=== PATIENT | female | born 1985 | race Caucasian/White ===

== ENCOUNTER 2024-11-10 08:15 | Inpatient (IN) | payer MEDICAID ==
[2024-11-10] MEDS ORDERED: Sodium Chloride 0.9% 10 ML Syringe FLUSH PRN (08:34)
[2024-11-10] MEDS: Sodium Chloride 0.9% 1,000 ML IV ONE ×2 (08:42)
[2024-11-10] MEDS: Ondansetron 4 MG/2 ML SDV IVPUSH ONE ×2 (08:42→13:59)
[2024-11-10 08:46] LABS: BASE EXCESS VENOUS -26.4 (-2.0-3.0); HEMATOCRIT 53.3 % (37.0-47.0); HEMOGLOBIN 16.5 g/dL (12.0-16.0); MEAN CORPUSCULAR HEMOGLOBIN 30.3 pg (28.0-32.0); MEAN PLATELET VOLUME 11.9 fL (9.4-12.3); PH,VENOUS 6.94 (7.32-7.43); PLATELET COUNT,PLT 459 K/uL (150-400); RED BLOOD CELL COUNT 5.44 M/uL (4.10-5.30)
[2024-11-10 08:51] LABS: WHITE BLOOD CELL COUNT,WBC 36.31 K/uL (3.9-11.3)
[2024-11-10] MEDS: Cefepime 2 GM in Sodium Chloride 0.9% 50 ML IV ONE (09:09)
[2024-11-10 09:11] LABS: A/G RATIO 0.7 (0.9-1.6); ALANINE AMINOTRANSFERASE,ALT 170 IU/L (14-63); ALBUMIN 3.5 g/dL (3.4-5.0); ALKALINE PHOSPHATASE 145 U/L (46-116); ASPARTATE AMNIOTRANSFERASE,AST 99 IU/L (15-37); BILIRUBIN TOTAL 1.5 mg/dL (0.2-1.0); BLOOD UREA NITROGEN,BUN 32 mg/dL (7.0-18.0); CALCIUM 9.1 mg/dL (8.5-10.1); CARBON DIOXIDE,CO2 6.2 mmol/L (21.0-32.0); CHLORIDE,CL 85 mmol/L (98-107); CREATINE KINASE,CK 96 U/L (26-308); CREATININE 2.8 mg/dL (0.6-1.0); MAGNESIUM 2.8 mg/dL (1.8-2.4); POTASSIUM,K 3.7 mmol/L (3.5-5.1); PROTEIN TOTAL,TP 8.4 g/dL (6.4-8.2); SODIUM,NA 126 mmol/L (136-145); TSH ULTRASENSITIVE 0.41 uIU/mL (0.36-3.74)
[2024-11-10 09:12] LABS: BAND ABSOLUTE MAN 0.36; BAND PERCENT MAN 1 %; EOSINOPHILS ABSOLUTE MAN 4.72 K/uL (0.00-0.45); EOSINOPHILS PERCENT MAN 13 % (0-6); LYMPHOCYTES ABSOLUTE MAN 3.27 K/uL (1.00-4.80); LYMPHOCYTES PERCENT MAN 9 % (24-44); MONOCYTES ABSOLUTE MAN 2.54 K/uL (0.00-0.80); MONOCYTES PERCENT MAN 7 % (0-8); SEG NEUTROPHILS ABSOLUTE MAN 25.42 K/uL (1.80-7.70); SEG NEUTROPHILS PERCENT MAN 70 % (41-71)
[2024-11-10 09:20] LABS: ESTIMATED GFR 21 mL/min (>60); GLUCOSE RANDOM 1384 mg/dL (74-106)
[2024-11-10 09:21] LABS: ETHANOL BLOOD MEDICAL < 3.0 mg/dL
[2024-11-10] MEDS ORDERED: Glucagon,Human Recombinant 1 MG Vial IM PRN ×3 (09:30→15:38)
[2024-11-10] MEDS ORDERED: 50% Dextrose in Water 50 ML Syringe IVPUSH PRN ×3 (09:30→15:38)
[2024-11-10] MEDS: Insulin Regular, Human 100 Units/ML 10 ML Vial IVPUSH ONE (09:38)
[2024-11-10] MEDS: NS with KCl 40mEq 1,000 ML IV SCH (09:38)
[2024-11-10] MEDS: Insulin Regular in 0.9 % NACL 100 ML IV SCH ×2 (10:21→16:41)
[2024-11-10] MEDS: Metoclopramide 10 MG/2 ML SDV IVPUSH ONE (10:40)
[2024-11-10] MEDS: Acetaminophen 1,000 MG in Premix Bag 1 BAG IV ONE (11:16)
[2024-11-10 11:20] LABS: AMPHETAMINES SCREEN, URINE NEGATIVE (CUTOFF=500); BARBITURATE SCREEN,URINE NEGATIVE (CUTOFF=200); BENZODIAZEPINES SCREEN,URINE NEGATIVE (CUTOFF=150); BUPRENORPHINE SCREEN,URINE NEGATIVE (CUTOFF=10); METHADONE SCREEN, URINE NEGATIVE (CUTOFF=200); METHAMPHETAMINES SCREEN, URINE NEGATIVE (CUTOFF=500); OXYCODONE SCREEN,URINE NEGATIVE (CUT0FF=100); PCP SCREEN,URINE NEGATIVE (CUTOFF=25); THC SCREEN,URINE 20 NG/ML NEGATIVE (CUTOFF=50)
[2024-11-10 11:23] LABS: APPEARANCE,URINE CLOUDY; COLOR,URINE YELLOW
[2024-11-10 11:24] LABS: BILIRUBIN,URINE SMALL (NEGATIVE); GLUCOSE,URINE >1000 mg/dL (NEGATIVE); KETONES,URINE >80 mg/dL (NEGATIVE); OCCULT BLOOD,URINE MODERATE (NEGATIVE); PROTEIN,URINE 100 mg/dL (NEGATIVE)
[2024-11-10 11:25] LABS: LEUKOCYTE ESTERASE,URINE NEGATIVE (NEGATIVE); NITRITE,URINE NEGATIVE (NEGATIVE); UROBILINOGEN,URINE 0.2 EU/dL (<2.0)
[2024-11-10 11:26] LABS: BACTERIA,URINE FEW (NEGATIVE); EPITHELIAL CELLS,URINE MANY (NONE-FEW); RBC,URINE 0-3 (0-2/HPF); WBC,URINE 0-2 (0-5/HPF)
[2024-11-10 11:27] LABS: AMORPHOUS SEDIMENT,URINE MODERATE (NEGATIVE)
[2024-11-10] MEDS: Benzocaine/Cetylpyridinium/Menthol Lozenge MUCMEM ONE (12:00)
[2024-11-10 12:26] LABS: BASE EXCESS VENOUS -21.3 (-2.0-3.0); PH,VENOUS 7.05 (7.32-7.43)
[2024-11-10 13:12] LABS: A/G RATIO 0.7 (0.9-1.6); ALANINE AMINOTRANSFERASE,ALT 167 IU/L (14-63); ALBUMIN 3.5 g/dL (3.4-5.0); ALKALINE PHOSPHATASE 125 U/L (46-116); ASPARTATE AMNIOTRANSFERASE,AST 95 IU/L (15-37); BILIRUBIN TOTAL 1.5 mg/dL (0.2-1.0); BLOOD UREA NITROGEN,BUN 32 mg/dL (7.0-18.0); CALCIUM 8.8 mg/dL (8.5-10.1); CHLORIDE,CL 97 mmol/L (98-107); MAGNESIUM 2.2 mg/dL (1.8-2.4); POTASSIUM,K 4.3 mmol/L (3.5-5.1); PROTEIN TOTAL,TP 8.2 g/dL (6.4-8.2); SODIUM,NA 135 mmol/L (136-145)
[2024-11-10 13:13] LABS: ESTIMATED GFR 32 mL/min (>60)
[2024-11-10 13:14] LABS: GLUCOSE RANDOM 929 mg/dL (74-106)
[2024-11-10 13:38] LABS: LIPASE 4282 U/L (16-77)
[2024-11-10 14:17] LABS: BLOOD UREA NITROGEN,BUN 29 mg/dL (7.0-18.0); CALCIUM 8.7 mg/dL (8.5-10.1); CARBON DIOXIDE,CO2 10.2 mmol/L (21.0-32.0); CHLORIDE,CL 100 mmol/L (98-107); CREATININE 1.9 mg/dL (0.6-1.0); POTASSIUM,K 4.9 mmol/L (3.5-5.1); SODIUM,NA 137 mmol/L (136-145)
[2024-11-10 14:20] LABS: ESTIMATED GFR 34 mL/min (>60); GLUCOSE RANDOM 720 mg/dL (74-106)
[2024-11-10 15:10] LABS: BASE EXCESS ARTERIAL -14.9 (-2.0-3.0); BICARBONATE,ARTERIAL 10 mEq/L (21-28); PCO2 ARTERIAL 21 mmHG (35-45); PO2 ARTERIAL 85 mmHG (83-108)
[2024-11-10] MEDS: Lactated Ringers 1,000 ML IV ONE (15:11)
[2024-11-10] MEDS ORDERED: Naloxone 0.4 MG/ML SDV IVPUSH PRN (15:35)
[2024-11-10 15:39] LABS: BLOOD UREA NITROGEN,BUN 27 mg/dL (7.0-18.0); CALCIUM 9.1 mg/dL (8.5-10.1); CARBON DIOXIDE,CO2 10.7 mmol/L (21.0-32.0); CHLORIDE,CL 104 mmol/L (98-107); CREATININE 1.6 mg/dL (0.6-1.0); POTASSIUM,K 5.1 mmol/L (3.5-5.1); SODIUM,NA 138 mmol/L (136-145); TRIGLYCERIDES 328 mg/dL (0-200)
[2024-11-10 15:43] LABS: ESTIMATED GFR 42 mL/min (>60); GLUCOSE RANDOM 598 mg/dL (74-106)
[2024-11-10] MEDS: Sodium Chloride 0.9% 1,000 ML IV SCH (16:44)
[2024-11-10] MEDS: Cefepime 1 GM in Sodium Chloride 0.9% 50 ML IV SCH (16:45)
[2024-11-10] MEDS: Heparin Sodium 5,000 Units/ML Vial SUBCUT SCH (16:48)
[2024-11-10 16:56] LABS: HEMOGLOBIN A1C >14.0 %
[2024-11-10] MEDS: Ondansetron 4 MG Tab.DIS PO PRN (17:19)
[2024-11-10] MEDS: Morphine 2 MG/ML SYRINGE IVPUSH PRN (17:20)
[2024-11-10] MEDS: Azithromycin 500 MG in Sodium Chloride 0.9% 250 ML IV SCH (17:24)
[2024-11-10] MEDS: Pantoprazole 40 MG in Sodium Chloride 0.9% 10 ML IVPUSH SCH (18:11)
[2024-11-10 21:12] LABS: CALCIUM 8.5 mg/dL (8.5-10.1); CARBON DIOXIDE,CO2 15.9 mmol/L (21.0-32.0); CREATININE 1.5 mg/dL (0.6-1.0); EST CRCL DRUG DOSING (CG) 46.67 mL/min; POTASSIUM,K 4.8 mmol/L (3.5-5.1)
[2024-11-10] MEDS: Morphine 2 MG/ML SYRINGE IVPUSH ONE (22:58)
[2024-11-11 00:46] LABS: CALCIUM 8.4 mg/dL (8.5-10.1); CARBON DIOXIDE,CO2 17.9 mmol/L (21.0-32.0); CREATININE 1.3 mg/dL (0.6-1.0); EST CRCL DRUG DOSING (CG) 53.85 mL/min; POTASSIUM,K 4.4 mmol/L (3.5-5.1)
[2024-11-11] MEDS: Dextrose 5%-0.45% NaCl 1,000 ML IV SCH (01:58)
[2024-11-11 04:04] LABS: HEMATOCRIT 41.1 % (37.0-47.0); MEAN CORPUSCULAR HEMOGLOBIN 30.6 pg (28.0-32.0); MEAN CORPUSCULAR HGB CONC 34.1 g/dL (32.0-36.0); MEAN CORPUSCULAR VOLUME 89.9 fL (83.0-99.0); MEAN PLATELET VOLUME 10.6 fL (9.4-12.3); PLATELET COUNT,PLT 218 K/uL (150-400); RED BLOOD CELL COUNT 4.57 M/uL (4.10-5.30); WHITE BLOOD CELL COUNT,WBC 18.38 K/uL (3.9-11.3)
[2024-11-11] MEDS: Ondansetron 4 MG/2 ML SDV IVPUSH PRN (04:20)
[2024-11-11 04:22] LABS: CALCIUM 8.6 mg/dL (8.5-10.1); CARBON DIOXIDE,CO2 15.6 mmol/L (21.0-32.0); CREATININE 1.3 mg/dL (0.6-1.0); EST CRCL DRUG DOSING (CG) 53.85 mL/min
[2024-11-11 04:28] LABS: MAGNESIUM 1.9 mg/dL (1.8-2.4)
[2024-11-11 04:36] LABS: LYMPHOCYTES ABSOLUTE MAN 1.65 K/uL (1.00-4.80); LYMPHOCYTES PERCENT MAN 9 % (24-44); MONOCYTES ABSOLUTE MAN 2.02 K/uL (0.00-0.80); MONOCYTES PERCENT MAN 11 % (0-8); SEG NEUTROPHILS PERCENT MAN 80 % (41-71)
[2024-11-11] MEDS: Calcium Carbonate 500 MG Tab.Chew PO ONE (04:39)
[2024-11-11] MEDS: Pantoprazole 40 MG in Sodium Chloride 0.9% 10 ML IVPUSH ONE (04:51)
[2024-11-11 08:36] LABS: CALCIUM 8.5 mg/dL (8.5-10.1); CREATININE 1.1 mg/dL (0.6-1.0); EST CRCL DRUG DOSING (CG) 63.64 mL/min; POTASSIUM,K 3.7 mmol/L (3.5-5.1)
[2024-11-11] MEDS: Iopamidol 755 MG/ML 500 ML Multipack Bottle IVPUSH STA (10:44)
[2024-11-11] MEDS: Sodium Chloride 0.65% Nasal Spray 45 ML Bottle NAS PRN (12:07)
[2024-11-11 12:20] LABS: CALCIUM 8.4 mg/dL (8.5-10.1); CARBON DIOXIDE,CO2 14.6 mmol/L (21.0-32.0); CREATININE 1.1 mg/dL (0.6-1.0); EST CRCL DRUG DOSING (CG) 63.64 mL/min; POTASSIUM,K 3.8 mmol/L (3.5-5.1)
[2024-11-11] MEDS: Lactated Ringers 1,000 ML IV SCH (13:25)
[2024-11-11] MEDS: Morphine 2 MG/ML SYRINGE IVPUSH PRN (16:25)
[2024-11-11 16:33] LABS: ALBUMIN 2.4 g/dL (3.4-5.0); CALCIUM 8.3 mg/dL (8.5-10.1); CARBON DIOXIDE,CO2 17.3 mmol/L (21.0-32.0); CREATININE 1.1 mg/dL (0.6-1.0); EST CRCL DRUG DOSING (CG) 63.64 mL/min; POTASSIUM,K 3.5 mmol/L (3.5-5.1)
[2024-11-11 20:25] LABS: CALCIUM 8.5 mg/dL (8.5-10.1); CARBON DIOXIDE,CO2 19.4 mmol/L (21.0-32.0); EST CRCL DRUG DOSING (CG) 70.01 mL/min; POTASSIUM,K 3.5 mmol/L (3.5-5.1)
[2024-11-12 00:41] LABS: CALCIUM 8.4 mg/dL (8.5-10.1); CARBON DIOXIDE,CO2 19.4 mmol/L (21.0-32.0); EST CRCL DRUG DOSING (CG) 70.01 mL/min; POTASSIUM,K 3.4 mmol/L (3.5-5.1)
[2024-11-12 06:03] LABS: BASOPHILS ABSOLUTE AUTO 0.04 K/uL (0.00-0.20); BASOPHILS PERCENT AUTO 0.3 % (0.0-1.0); EOSINOPHILS ABSOLUTE AUTO 0.01 K/uL (0.00-0.45); EOSINOPHILS PERCENT AUTO 0.1 % (0.0-6.0); HEMATOCRIT 35.7 % (37.0-47.0); HEMOGLOBIN 12.1 g/dL (12.0-16.0); IMMATURE GRAN PERCENT AUTO 0.7 % (0.0-0.4); LYMPHOCYTES ABSOLUTE AUTO 2.55 K/uL (1.00-4.80); LYMPHOCYTES PERCENT AUTO 18.2 % (24.0-44.0); MEAN CORPUSCULAR HEMOGLOBIN 30.3 pg (28.0-32.0); MEAN CORPUSCULAR HGB CONC 33.9 g/dL (32.0-36.0); MEAN CORPUSCULAR VOLUME 89.5 fL (83.0-99.0); MEAN PLATELET VOLUME 10.8 fL (9.4-12.3); MONOCYTES ABSOLUTE AUTO 1.36 K/uL (0.00-0.80); MONOCYTES PERCENT AUTO 9.7 % (0.0-8.0); NEUTROPHILS ABSOLUTE AUTO 9.95 K/uL (1.80-7.70); PLATELET COUNT,PLT 204 K/uL (150-400); RED BLOOD CELL COUNT 3.99 M/uL (4.10-5.30); WHITE BLOOD CELL COUNT,WBC 14.01 K/uL (3.9-11.3)
[2024-11-12 06:38] LABS: A/G RATIO 0.6 (0.9-1.6); ALBUMIN 2.4 g/dL (3.4-5.0); CALCIUM 8.5 mg/dL (8.5-10.1); CARBON DIOXIDE,CO2 18.8 mmol/L (21.0-32.0); CREATININE 0.9 mg/dL (0.6-1.0); EST CRCL DRUG DOSING (CG) 77.79 mL/min; MAGNESIUM 1.9 mg/dL (1.8-2.4); POTASSIUM,K 3.4 mmol/L (3.5-5.1); PROTEIN TOTAL,TP 6.2 g/dL (6.4-8.2)
[2024-11-12] MEDS: Pantoprazole 40 MG in Sodium Chloride 0.9% 10 ML IVPUSH SCH (07:51)
[2024-11-12 09:56] LABS: CALCIUM 8.4 mg/dL (8.5-10.1); CARBON DIOXIDE,CO2 18.5 mmol/L (21.0-32.0); CREATININE 0.9 mg/dL (0.6-1.0); EST CRCL DRUG DOSING (CG) 77.79 mL/min; POTASSIUM,K 3.2 mmol/L (3.5-5.1)
[2024-11-12] MEDS: Metoclopramide 10 MG/2 ML SDV IVPUSH PRN (10:16)
[2024-11-12] MEDS: NS with KCl 40mEq 500 ML IV SCH (10:42)
[2024-11-12 14:27] LABS: CALCIUM 8.2 mg/dL (8.5-10.1); CARBON DIOXIDE,CO2 20.7 mmol/L (21.0-32.0); CREATININE 0.8 mg/dL (0.6-1.0); EST CRCL DRUG DOSING (CG) 87.51 mL/min; POTASSIUM,K 3.3 mmol/L (3.5-5.1)
[2024-11-12] MEDS ORDERED: 50% Dextrose in Water 50 ML Syringe IVPUSH PRN (15:05)
[2024-11-12] MEDS ORDERED: Glucagon,Human Recombinant 1 MG Vial IM PRN (15:05)
[2024-11-12] MEDS ORDERED: Dextrose 5%-0.45% NaCl 1,000 ML IV SCH (15:15)
[2024-11-12] MEDS: Insulin Glargine,Human Rec. Analog 100 Units/ML 3 ML Pen SUBCUT ONE (16:11)
[2024-11-12] MEDS: Potassium Chloride 10 MEQ in Premix Bag 1 BAG IV SCH (16:26)
[2024-11-12] MEDS: Insulin Aspart 100 Units/ML 3 ML Pen SUBCUT SCH (17:38)
[2024-11-12 18:06] LABS: CALCIUM 8.1 mg/dL (8.5-10.1); CARBON DIOXIDE,CO2 18.3 mmol/L (21.0-32.0); CREATININE 0.9 mg/dL (0.6-1.0); EST CRCL DRUG DOSING (CG) 77.79 mL/min; POTASSIUM,K 3.5 mmol/L (3.5-5.1)
[2024-11-12 21:58] LABS: CALCIUM 8.1 mg/dL (8.5-10.1); CARBON DIOXIDE,CO2 16.7 mmol/L (21.0-32.0); CREATININE 0.9 mg/dL (0.6-1.0); EST CRCL DRUG DOSING (CG) 77.79 mL/min; POTASSIUM,K 3.6 mmol/L (3.5-5.1)
[2024-11-13 05:06] LABS: BORDETELLA PARAPERT IS1001 Not Detected (Not Detected)
[2024-11-13 06:07] LABS: BASOPHILS ABSOLUTE AUTO 0.05 K/uL (0.00-0.20); BASOPHILS PERCENT AUTO 0.5 % (0.0-1.0); EOSINOPHILS ABSOLUTE AUTO 0.03 K/uL (0.00-0.45); EOSINOPHILS PERCENT AUTO 0.3 % (0.0-6.0); HEMATOCRIT 38.9 % (37.0-47.0); HEMOGLOBIN 12.7 g/dL (12.0-16.0); IMMATURE GRAN ABSOLUTE AUTO 0.05 K/uL (0.00-0.05); IMMATURE GRAN PERCENT AUTO 0.5 % (0.0-0.4); LYMPHOCYTES ABSOLUTE AUTO 2.46 K/uL (1.00-4.80); LYMPHOCYTES PERCENT AUTO 24.8 % (24.0-44.0); MEAN CORPUSCULAR HEMOGLOBIN 30.1 pg (28.0-32.0); MEAN CORPUSCULAR HGB CONC 32.6 g/dL (32.0-36.0); MEAN CORPUSCULAR VOLUME 92.2 fL (83.0-99.0); MEAN PLATELET VOLUME 10.9 fL (9.4-12.3); MONOCYTES ABSOLUTE AUTO 0.87 K/uL (0.00-0.80); MONOCYTES PERCENT AUTO 8.8 % (0.0-8.0); NEUTROPHILS ABSOLUTE AUTO 6.46 K/uL (1.80-7.70); NEUTROPHILS PERCENT AUTO 65.1 % (41.0-71.0); PLATELET COUNT,PLT 203 K/uL (150-400); RED BLOOD CELL COUNT 4.22 M/uL (4.10-5.30); WHITE BLOOD CELL COUNT,WBC 9.92 K/uL (3.9-11.3)
[2024-11-13 06:39] LABS: A/G RATIO 0.6 (0.9-1.6); ALBUMIN 2.4 g/dL (3.4-5.0); BILIRUBIN TOTAL 1.2 mg/dL (0.2-1.0); CALCIUM 8.2 mg/dL (8.5-10.1); CARBON DIOXIDE,CO2 15.7 mmol/L (21.0-32.0); CREATININE 0.9 mg/dL (0.6-1.0); EST CRCL DRUG DOSING (CG) 77.79 mL/min; MAGNESIUM 1.9 mg/dL (1.8-2.4); POTASSIUM,K 3.8 mmol/L (3.5-5.1); PROTEIN TOTAL,TP 6.2 g/dL (6.4-8.2)
[2024-11-13] MEDS: Calcium Carbonate 500 MG Tab.Chew PO PRN (09:42)
[2024-11-13] MEDS: Sodium Chloride 0.9% 1,000 ML IV SCH (09:42)
[2024-11-13 10:46] LABS: CALCIUM 8.3 mg/dL (8.5-10.1); CREATININE 0.8 mg/dL (0.6-1.0); EST CRCL DRUG DOSING (CG) 87.51 mL/min; POTASSIUM,K 3.2 mmol/L (3.5-5.1)
[2024-11-13 14:42] LABS: CALCIUM 8.4 mg/dL (8.5-10.1); CARBON DIOXIDE,CO2 17.3 mmol/L (21.0-32.0); CREATININE 0.9 mg/dL (0.6-1.0); EST CRCL DRUG DOSING (CG) 77.79 mL/min; POTASSIUM,K 3.4 mmol/L (3.5-5.1)
[2024-11-13] MEDS ORDERED: Glucagon,Human Recombinant 1 MG Vial IM PRN (14:55)
[2024-11-13] MEDS ORDERED: 50% Dextrose in Water 50 ML Syringe IVPUSH PRN (14:55)
[2024-11-13] MEDS: Potassium Chloride 10 MEQ in Premix Bag 1 BAG IV SCH (15:24)
[2024-11-13] MEDS: Acetaminophen 325 MG Tab PO PRN (16:22)
[2024-11-13 18:28] LABS: CALCIUM 8.1 mg/dL (8.5-10.1); CARBON DIOXIDE,CO2 16.1 mmol/L (21.0-32.0); CREATININE 0.8 mg/dL (0.6-1.0); EST CRCL DRUG DOSING (CG) 87.51 mL/min; POTASSIUM,K 3.4 mmol/L (3.5-5.1)
[2024-11-13] MEDS: Pantoprazole 40 MG in Sodium Chloride 0.9% 10 ML IVPUSH SCH (20:04)
[2024-11-13] MEDS: Insulin Glargine,Human Rec. Analog 100 Units/ML 3 ML Pen SUBCUT SCH (20:32)
[2024-11-13] MEDS ORDERED: Insulin Glargine,Human Rec. Analog 100 Units/ML 3 ML Pen SUBCUT SCH (21:00)
[2024-11-13 22:41] LABS: CALCIUM 8.2 mg/dL (8.5-10.1); CARBON DIOXIDE,CO2 15.8 mmol/L (21.0-32.0); CREATININE 0.8 mg/dL (0.6-1.0); EST CRCL DRUG DOSING (CG) 87.51 mL/min; POTASSIUM,K 3.4 mmol/L (3.5-5.1)
[2024-11-14 05:41] LABS: BASOPHILS ABSOLUTE AUTO 0.03 K/uL (0.00-0.20); BASOPHILS PERCENT AUTO 0.4 % (0.0-1.0); EOSINOPHILS ABSOLUTE AUTO 0.08 K/uL (0.00-0.45); EOSINOPHILS PERCENT AUTO 1.1 % (0.0-6.0); HEMATOCRIT 34.4 % (37.0-47.0); HEMOGLOBIN 11.5 g/dL (12.0-16.0); IMMATURE GRAN ABSOLUTE AUTO 0.06 K/uL (0.00-0.05); IMMATURE GRAN PERCENT AUTO 0.8 % (0.0-0.4); LYMPHOCYTES ABSOLUTE AUTO 2.01 K/uL (1.00-4.80); MEAN CORPUSCULAR HEMOGLOBIN 29.9 pg (28.0-32.0); MEAN CORPUSCULAR HGB CONC 33.4 g/dL (32.0-36.0); MEAN CORPUSCULAR VOLUME 89.6 fL (83.0-99.0); MEAN PLATELET VOLUME 10.8 fL (9.4-12.3); MONOCYTES ABSOLUTE AUTO 0.66 K/uL (0.00-0.80); MONOCYTES PERCENT AUTO 9.2 % (0.0-8.0); NEUTROPHILS ABSOLUTE AUTO 4.35 K/uL (1.80-7.70); NEUTROPHILS PERCENT AUTO 60.5 % (41.0-71.0); PLATELET COUNT,PLT 184 K/uL (150-400); RED BLOOD CELL COUNT 3.84 M/uL (4.10-5.30); WHITE BLOOD CELL COUNT,WBC 7.19 K/uL (3.9-11.3)
[2024-11-14 06:03] LABS: A/G RATIO 0.7 (0.9-1.6); ALBUMIN 2.3 g/dL (3.4-5.0); BILIRUBIN TOTAL 0.9 mg/dL (0.2-1.0); CALCIUM 8.2 mg/dL (8.5-10.1); CARBON DIOXIDE,CO2 15.4 mmol/L (21.0-32.0); CREATININE 0.8 mg/dL (0.6-1.0); EST CRCL DRUG DOSING (CG) 87.51 mL/min; MAGNESIUM 1.8 mg/dL (1.8-2.4); PROTEIN TOTAL,TP 5.8 g/dL (6.4-8.2)
[2024-11-14] MEDS: Potassium Chloride 10 MEQ in Premix Bag 1 BAG IV SCH ×2 (07:40→13:37)
[2024-11-14] MEDS ORDERED: 50% Dextrose in Water 50 ML Syringe IVPUSH PRN (09:06)
[2024-11-14] MEDS ORDERED: Glucagon,Human Recombinant 1 MG Vial IM PRN (09:06)
[2024-11-14] MEDS: Insulin Regular in 0.9 % NACL 100 ML IV SCH (09:37)
[2024-11-14 12:44] LABS: CALCIUM 8.1 mg/dL (8.5-10.1); CARBON DIOXIDE,CO2 16.7 mmol/L (21.0-32.0); CREATININE 0.8 mg/dL (0.6-1.0); EST CRCL DRUG DOSING (CG) 87.51 mL/min; POTASSIUM,K 3.4 mmol/L (3.5-5.1)
[2024-11-14] MEDS: Benzocaine/Cetylpyridinium/Menthol Lozenge MUCMEM PRN (15:44)
[2024-11-14 16:53] LABS: CALCIUM 8.3 mg/dL (8.5-10.1); CARBON DIOXIDE,CO2 16.7 mmol/L (21.0-32.0); CREATININE 0.7 mg/dL (0.6-1.0); EST CRCL DRUG DOSING (CG) 100.01 mL/min; POTASSIUM,K 3.3 mmol/L (3.5-5.1)
[2024-11-14] MEDS: Dextrose 5%-0.9% NaCl 1,000 ML IV SCH (17:44)
[2024-11-14 20:46] LABS: CALCIUM 8.4 mg/dL (8.5-10.1); CARBON DIOXIDE,CO2 16.7 mmol/L (21.0-32.0); CREATININE 0.6 mg/dL (0.6-1.0); EST CRCL DRUG DOSING (CG) 116.68 mL/min; POTASSIUM,K 3.2 mmol/L (3.5-5.1)
[2024-11-14] MEDS: VANCOmycin 1.5 GM in Sodium Chloride 0.9% 250 ML IV ONE (20:52)
[2024-11-14] MEDS: Morphine 2 MG/ML SYRINGE IVPUSH ONE (22:16)
[2024-11-15] MEDS: fentaNYL 50 MCG/ML SDV IVPUSH ONE ×2 (00:35→05:05)
[2024-11-15 01:11] LABS: CALCIUM 8.5 mg/dL (8.5-10.1); CARBON DIOXIDE,CO2 18.7 mmol/L (21.0-32.0); CREATININE 0.7 mg/dL (0.6-1.0); EST CRCL DRUG DOSING (CG) 100.01 mL/min
[2024-11-15 04:00] LABS: BASOPHILS ABSOLUTE AUTO 0.04 K/uL (0.00-0.20); BASOPHILS PERCENT AUTO 0.5 % (0.0-1.0); EOSINOPHILS ABSOLUTE AUTO 0.18 K/uL (0.00-0.45); EOSINOPHILS PERCENT AUTO 2.2 % (0.0-6.0); HEMATOCRIT 32.8 % (37.0-47.0); HEMOGLOBIN 11.6 g/dL (12.0-16.0); IMMATURE GRAN ABSOLUTE AUTO 0.12 K/uL (0.00-0.05); IMMATURE GRAN PERCENT AUTO 1.5 % (0.0-0.4); LYMPHOCYTES ABSOLUTE AUTO 2.36 K/uL (1.00-4.80); LYMPHOCYTES PERCENT AUTO 29.3 % (24.0-44.0); MEAN CORPUSCULAR HEMOGLOBIN 30.4 pg (28.0-32.0); MEAN CORPUSCULAR HGB CONC 35.4 g/dL (32.0-36.0); MEAN CORPUSCULAR VOLUME 85.9 fL (83.0-99.0); MEAN PLATELET VOLUME 10.1 fL (9.4-12.3); MONOCYTES ABSOLUTE AUTO 0.93 K/uL (0.00-0.80); MONOCYTES PERCENT AUTO 11.5 % (0.0-8.0); NEUTROPHILS ABSOLUTE AUTO 4.43 K/uL (1.80-7.70); PLATELET COUNT,PLT 185 K/uL (150-400); RED BLOOD CELL COUNT 3.82 M/uL (4.10-5.30); WHITE BLOOD CELL COUNT,WBC 8.06 K/uL (3.9-11.3)
[2024-11-15 04:22] LABS: CARBON DIOXIDE,CO2 19.3 mmol/L (21.0-32.0); CREATININE 0.6 mg/dL (0.6-1.0); EST CRCL DRUG DOSING (CG) 116.68 mL/min; POTASSIUM,K 2.8 mmol/L (3.5-5.1)
[2024-11-15] MEDS: VANCOmycin 1 GM in Sodium Chloride 0.9% 250 ML IV SCH (05:05)
[2024-11-15] MEDS ORDERED: Magnesium Sulf/Wat 2 GM/50 mL 2 GM in Premix Bag 1 BAG IV SCH (05:30)
[2024-11-15] MEDS: Potassium Chloride 10 MEQ in Premix Bag 1 BAG IV SCH ×2 (05:50→21:45)
[2024-11-15] MEDS: Magnesium Sulf/Wat 2 GM/50 mL 2 GM in Premix Bag 1 BAG IV ONE ×2 (05:52→21:20)
[2024-11-15 08:42] LABS: CALCIUM 8.7 mg/dL (8.5-10.1); CARBON DIOXIDE,CO2 23.2 mmol/L (21.0-32.0); CREATININE 0.7 mg/dL (0.6-1.0); EST CRCL DRUG DOSING (CG) 100.01 mL/min; POTASSIUM,K 2.9 mmol/L (3.5-5.1)
[2024-11-15] MEDS: Potassium Phosphates 20 MMOLE in Sodium Chloride 0.9% 500 ML IV ONE (08:45)
[2024-11-15] MEDS: Morphine 2 MG/ML SYRINGE IVPUSH PRN (09:55)
[2024-11-15 12:57] LABS: CARBON DIOXIDE,CO2 22.1 mmol/L (21.0-32.0); CREATININE 0.6 mg/dL (0.6-1.0); EST CRCL DRUG DOSING (CG) 116.68 mL/min
[2024-11-15] MEDS: NS with KCl 40mEq 1,000 ML IV ONE (14:07)
[2024-11-15] MEDS ORDERED: hydrOXYzine HCl 25 MG Tab PO PRN (16:22)
[2024-11-15 18:56] LABS: CALCIUM 7.9 mg/dL (8.5-10.1); CARBON DIOXIDE,CO2 23.4 mmol/L (21.0-32.0); CREATININE 0.6 mg/dL (0.6-1.0); EST CRCL DRUG DOSING (CG) 116.68 mL/min; MAGNESIUM 1.5 mg/dL (1.8-2.4); PHOSPHORUS 1.8 mg/dL (2.6-4.7); POTASSIUM,K 3.3 mmol/L (3.5-5.1)
[2024-11-15] MEDS: Melatonin 3 MG Tab PO SCH (21:06)
[2024-11-15] MEDS: Potassium Chloride 20 MEQ in Premix Bag 1 BAG IV ONE (21:37)
[2024-11-16] MEDS: LORazepam 2 MG/ML SDV IVPUSH ONE (00:35)
[2024-11-16 00:44] LABS: CALCIUM 7.7 mg/dL (8.5-10.1); CARBON DIOXIDE,CO2 23.2 mmol/L (21.0-32.0); CREATININE 0.5 mg/dL (0.6-1.0); EST CRCL DRUG DOSING (CG) 140.01 mL/min; POTASSIUM,K 3.3 mmol/L (3.5-5.1)
[2024-11-16 06:04] LABS: BASOPHILS ABSOLUTE AUTO 0.06 K/uL (0.00-0.20); BASOPHILS PERCENT AUTO 0.7 % (0.0-1.0); EOSINOPHILS ABSOLUTE AUTO 0.23 K/uL (0.00-0.45); EOSINOPHILS PERCENT AUTO 2.8 % (0.0-6.0); HEMATOCRIT 33.7 % (37.0-47.0); HEMOGLOBIN 11.7 g/dL (12.0-16.0); IMMATURE GRAN ABSOLUTE AUTO 0.16 K/uL (0.00-0.05); IMMATURE GRAN PERCENT AUTO 1.9 % (0.0-0.4); LYMPHOCYTES ABSOLUTE AUTO 2.13 K/uL (1.00-4.80); LYMPHOCYTES PERCENT AUTO 25.6 % (24.0-44.0); MEAN CORPUSCULAR HEMOGLOBIN 30.1 pg (28.0-32.0); MEAN CORPUSCULAR HGB CONC 34.7 g/dL (32.0-36.0); MEAN CORPUSCULAR VOLUME 86.6 fL (83.0-99.0); MEAN PLATELET VOLUME 10.2 fL (9.4-12.3); MONOCYTES ABSOLUTE AUTO 1.07 K/uL (0.00-0.80); MONOCYTES PERCENT AUTO 12.9 % (0.0-8.0); NEUTROPHILS ABSOLUTE AUTO 4.66 K/uL (1.80-7.70); NEUTROPHILS PERCENT AUTO 56.1 % (41.0-71.0); PLATELET COUNT,PLT 199 K/uL (150-400); RED BLOOD CELL COUNT 3.89 M/uL (4.10-5.30); WHITE BLOOD CELL COUNT,WBC 8.31 K/uL (3.9-11.3)
[2024-11-16 06:35] LABS: CALCIUM 7.8 mg/dL (8.5-10.1); CREATININE 0.5 mg/dL (0.6-1.0); EST CRCL DRUG DOSING (CG) 140.01 mL/min; MAGNESIUM 1.9 mg/dL (1.8-2.4); POTASSIUM,K 2.9 mmol/L (3.5-5.1)
[2024-11-16] MEDS: Potassium Chloride 10 MEQ in Premix Bag 1 BAG IV SCH ×4 (07:51→23:56)
[2024-11-16 12:25] LABS: CALCIUM 7.9 mg/dL (8.5-10.1); CARBON DIOXIDE,CO2 27.2 mmol/L (21.0-32.0); CREATININE 0.6 mg/dL (0.6-1.0); EST CRCL DRUG DOSING (CG) 116.68 mL/min; POTASSIUM,K 2.9 mmol/L (3.5-5.1)
[2024-11-16] MEDS: Potassium Chloride 20 MEQ Tab.ER PO ONE (12:25)
[2024-11-16] MEDS: VANCOmycin 1.25 GM in Sodium Chloride 0.9% 250 ML IV SCH (12:26)
[2024-11-16 18:49] LABS: CALCIUM 8.3 mg/dL (8.5-10.1); CARBON DIOXIDE,CO2 28.7 mmol/L (21.0-32.0); CREATININE 0.6 mg/dL (0.6-1.0); EST CRCL DRUG DOSING (CG) 116.68 mL/min; POTASSIUM,K 2.9 mmol/L (3.5-5.1)
[2024-11-16] MEDS: Potassium Chloride 20 MEQ in Premix Bag 1 BAG IV ONE ×2 (19:25→20:40)
[2024-11-16] MEDS: Potassium Chloride 10% 20 MEQ/15 ML Soln 15 ML UD Cup PO ONE (19:57)
[2024-11-16 23:31] LABS: CALCIUM 8.2 mg/dL (8.5-10.1); CARBON DIOXIDE,CO2 28.5 mmol/L (21.0-32.0); CREATININE 0.6 mg/dL (0.6-1.0); EST CRCL DRUG DOSING (CG) 116.68 mL/min; POTASSIUM,K 3.2 mmol/L (3.5-5.1)
[2024-11-17 05:56] LABS: BASOPHILS ABSOLUTE AUTO 0.03 K/uL (0.00-0.20); BASOPHILS PERCENT AUTO 0.5 % (0.0-1.0); EOSINOPHILS ABSOLUTE AUTO 0.18 K/uL (0.00-0.45); EOSINOPHILS PERCENT AUTO 2.7 % (0.0-6.0); HEMATOCRIT 34.7 % (37.0-47.0); IMMATURE GRAN ABSOLUTE AUTO 0.14 K/uL (0.00-0.05); IMMATURE GRAN PERCENT AUTO 2.1 % (0.0-0.4); LYMPHOCYTES ABSOLUTE AUTO 2.42 K/uL (1.00-4.80); LYMPHOCYTES PERCENT AUTO 36.9 % (24.0-44.0); MEAN CORPUSCULAR HGB CONC 34.6 g/dL (32.0-36.0); MEAN CORPUSCULAR VOLUME 86.8 fL (83.0-99.0); MEAN PLATELET VOLUME 10.6 fL (9.4-12.3); MONOCYTES ABSOLUTE AUTO 0.81 K/uL (0.00-0.80); MONOCYTES PERCENT AUTO 12.4 % (0.0-8.0); NEUTROPHILS ABSOLUTE AUTO 2.97 K/uL (1.80-7.70); NEUTROPHILS PERCENT AUTO 45.4 % (41.0-71.0); PLATELET COUNT,PLT 206 K/uL (150-400); WHITE BLOOD CELL COUNT,WBC 6.55 K/uL (3.9-11.3)
[2024-11-17 06:24] LABS: CALCIUM 8.4 mg/dL (8.5-10.1); CARBON DIOXIDE,CO2 28.3 mmol/L (21.0-32.0); CREATININE 0.5 mg/dL (0.6-1.0); EST CRCL DRUG DOSING (CG) 140.01 mL/min; MAGNESIUM 1.7 mg/dL (1.8-2.4); PHOSPHORUS 2.4 mg/dL (2.6-4.7); POTASSIUM,K 2.9 mmol/L (3.5-5.1)
[2024-11-17] MEDS: Metoclopramide 10 MG/2 ML SDV IVPUSH SCH ×2 (07:43→20:19)
[2024-11-17] MEDS: NS with KCl 40mEq 1,000 ML IV SCH (09:02)
[2024-11-17] MEDS: Magnesium Sulf/Wat 2 GM/50 mL 2 GM in Premix Bag 1 BAG IV ONE (10:38)
[2024-11-17 14:38] LABS: CALCIUM 8.6 mg/dL (8.5-10.1); CREATININE 0.5 mg/dL (0.6-1.0); EST CRCL DRUG DOSING (CG) 140.01 mL/min; POTASSIUM,K 3.9 mmol/L (3.5-5.1)
[2024-11-17] MEDS: VANCOmycin 1.25 GM in Sodium Chloride 0.9% 250 ML IV SCH (14:44)
[2024-11-17 23:48] LABS: CALCIUM 8.4 mg/dL (8.5-10.1); CARBON DIOXIDE,CO2 26.9 mmol/L (21.0-32.0); CREATININE 0.5 mg/dL (0.6-1.0); EST CRCL DRUG DOSING (CG) 140.01 mL/min; POTASSIUM,K 3.6 mmol/L (3.5-5.1)
[2024-11-18 06:21] LABS: BASOPHILS ABSOLUTE AUTO 0.05 K/uL (0.00-0.20); BASOPHILS PERCENT AUTO 0.7 % (0.0-1.0); EOSINOPHILS ABSOLUTE AUTO 0.18 K/uL (0.00-0.45); EOSINOPHILS PERCENT AUTO 2.6 % (0.0-6.0); HEMATOCRIT 37.1 % (37.0-47.0); HEMOGLOBIN 12.8 g/dL (12.0-16.0); IMMATURE GRAN ABSOLUTE AUTO 0.19 K/uL (0.00-0.05); IMMATURE GRAN PERCENT AUTO 2.7 % (0.0-0.4); LYMPHOCYTES ABSOLUTE AUTO 2.91 K/uL (1.00-4.80); LYMPHOCYTES PERCENT AUTO 41.7 % (24.0-44.0); MEAN CORPUSCULAR HEMOGLOBIN 30.1 pg (28.0-32.0); MEAN CORPUSCULAR HGB CONC 34.5 g/dL (32.0-36.0); MEAN CORPUSCULAR VOLUME 87.3 fL (83.0-99.0); MEAN PLATELET VOLUME 10.2 fL (9.4-12.3); MONOCYTES ABSOLUTE AUTO 0.83 K/uL (0.00-0.80); MONOCYTES PERCENT AUTO 11.9 % (0.0-8.0); NEUTROPHILS ABSOLUTE AUTO 2.82 K/uL (1.80-7.70); NEUTROPHILS PERCENT AUTO 40.4 % (41.0-71.0); PLATELET COUNT,PLT 245 K/uL (150-400); RED BLOOD CELL COUNT 4.25 M/uL (4.10-5.30); WHITE BLOOD CELL COUNT,WBC 6.98 K/uL (3.9-11.3)
[2024-11-18 07:11] LABS: A/G RATIO 0.7 (0.9-1.6); ALBUMIN 2.5 g/dL (3.4-5.0); BILIRUBIN TOTAL 0.5 mg/dL (0.2-1.0); CALCIUM 8.4 mg/dL (8.5-10.1); CARBON DIOXIDE,CO2 26.7 mmol/L (21.0-32.0); CREATININE 0.6 mg/dL (0.6-1.0); EST CRCL DRUG DOSING (CG) 116.68 mL/min; MAGNESIUM 1.8 mg/dL (1.8-2.4); PHOSPHORUS 2.9 mg/dL (2.6-4.7); POTASSIUM,K 3.4 mmol/L (3.5-5.1); PROTEIN TOTAL,TP 6.2 g/dL (6.4-8.2)
[2024-11-18] MEDS: Potassium Chloride 10 MEQ in Premix Bag 1 BAG IV SCH ×2 (07:47→17:16)
[2024-11-18] MEDS: Sodium Chloride 0.9% 1,000 ML IV SCH (09:54)
[2024-11-18] MEDS: Ondansetron 4 MG/2 ML SDV IVPUSH SCH (09:56)
[2024-11-18] MEDS: Lidocaine 2% 30 ML, Alum Hydrox/Mag Hydrox/Simeth 30 ML, diphenhydrAMINE 75 MG PO PRN (09:58)
[2024-11-18] MEDS ORDERED: Lidocaine 2% 30 ML, Alum Hydrox/Mag Hydrox/Simeth 30 ML, diphenhydrAMINE 75 MG PO PRN (11:36)
[2024-11-18] MEDS ORDERED: 50% Dextrose in Water 50 ML Syringe IVPUSH PRN (17:30)
[2024-11-18] MEDS ORDERED: Glucagon,Human Recombinant 1 MG Vial IM PRN (17:30)
[2024-11-18] MEDS: Insulin Glargine,Human Rec. Analog 100 Units/ML 3 ML Pen SUBCUT ONE (17:36)
[2024-11-19 06:27] LABS: BASOPHILS ABSOLUTE AUTO 0.03 K/uL (0.00-0.20); BASOPHILS PERCENT AUTO 0.4 % (0.0-1.0); EOSINOPHILS ABSOLUTE AUTO 0.16 K/uL (0.00-0.45); HEMATOCRIT 38.1 % (37.0-47.0); HEMOGLOBIN 13.1 g/dL (12.0-16.0); IMMATURE GRAN ABSOLUTE AUTO 0.09 K/uL (0.00-0.05); IMMATURE GRAN PERCENT AUTO 1.1 % (0.0-0.4); LYMPHOCYTES ABSOLUTE AUTO 2.39 K/uL (1.00-4.80); LYMPHOCYTES PERCENT AUTO 30.4 % (24.0-44.0); MEAN CORPUSCULAR HEMOGLOBIN 29.9 pg (28.0-32.0); MEAN CORPUSCULAR HGB CONC 34.4 g/dL (32.0-36.0); MEAN PLATELET VOLUME 10.3 fL (9.4-12.3); MONOCYTES ABSOLUTE AUTO 0.86 K/uL (0.00-0.80); MONOCYTES PERCENT AUTO 10.9 % (0.0-8.0); NEUTROPHILS ABSOLUTE AUTO 4.34 K/uL (1.80-7.70); NEUTROPHILS PERCENT AUTO 55.2 % (41.0-71.0); PLATELET COUNT,PLT 246 K/uL (150-400); RED BLOOD CELL COUNT 4.38 M/uL (4.10-5.30); WHITE BLOOD CELL COUNT,WBC 7.87 K/uL (3.9-11.3)
[2024-11-19 07:01] LABS: A/G RATIO 0.7 (0.9-1.6); ALBUMIN 2.7 g/dL (3.4-5.0); BILIRUBIN TOTAL 0.5 mg/dL (0.2-1.0); CALCIUM 9.3 mg/dL (8.5-10.1); CARBON DIOXIDE,CO2 23.3 mmol/L (21.0-32.0); CREATININE 0.6 mg/dL (0.6-1.0); EST CRCL DRUG DOSING (CG) 116.68 mL/min; POTASSIUM,K 3.6 mmol/L (3.5-5.1); PROTEIN TOTAL,TP 6.5 g/dL (6.4-8.2)
[2024-11-19 07:08] LABS: MAGNESIUM 1.7 mg/dL (1.8-2.4)
[2024-11-19] MEDS ORDERED: 50% Dextrose in Water 50 ML Syringe IVPUSH PRN (07:24)
[2024-11-19] MEDS ORDERED: Glucagon,Human Recombinant 1 MG Vial IM PRN (07:24)
[2024-11-19] MEDS: Insulin Aspart 100 Units/ML 3 ML Pen SUBCUT SCH (08:30)
[2024-11-19] MEDS: Magnesium Sulf/Wat 2 GM/50 mL 2 GM in Premix Bag 1 BAG IV ONE (08:31)
== END 2024-11-19 13:41 | disposition home or self-care (01) | DRG 637 ==
LOC: MW.ED 08:15 → MW.ICU 15:36
PROVIDERS: ADMIT Internal Medicine; ATTEND Internal Medicine
PROC: 4A033R1 Measurement of Arterial Saturation, Peripheral, Percutaneous Approach (ICD-10-PCS; principal; 2024-11-10)
DX: E11.10 Type 2 diabetes mellitus with ketoacidosis without coma (principal); K85.90 Acute pancreatitis without necrosis or infection, unspecified; N17.9 Acute kidney failure, unspecified; Z98.51 Tubal ligation status; I95.89 Other hypotension; T68.XXXA Hypothermia, initial encounter; E86.1 Hypovolemia; E87.6 Hypokalemia; E83.42 Hypomagnesemia; M21.372 Foot drop, left foot
CPT/HCPCS: 36415; 36600; 71045; 71045-26; 71275; 71275-26; 74019; 74019-26; 74176; 74176-26; 76705; 76705-26; 80048; 80053; 80061; 80202; 80305; 80307; 81001; 82009; 82040; 82550; 82803; 82947; 83036; 83605; 83690; 83735; 84100; 84443; 84478; 84484; 85025; 87040; 87428-QW; 87486; 87581; 87633; 87651; 87899; 93005; 94667; 94668; 96365; 96366; 96367; 96375; 96376; 97162-GP; 97530-GP; 99284; 99285-25; A9270-GY; J0131; J0456; J0692; J1644; J1815-GY; J2060; J2270; J2405; J2470; J2765; J3010; J3371; J3475; J3480; J3490; J7030; J7040; J7042; J7050; J7120; Q9967

== ENCOUNTER 2025-07-26 10:25 | Emergency (ER) | payer MEDICAID ==
[2025-07-26 11:38] LABS: APPEARANCE,URINE CLEAR; GLUCOSE,URINE >=1000 mg/dL (NEGATIVE); OCCULT BLOOD,URINE NEGATIVE (NEGATIVE)
[2025-07-26 11:40] LABS: EPITHELIAL CELLS,URINE RARE (NONE-FEW)
== END 2025-07-26 12:32 | disposition left against medical advice (07) ==
LOC: MW.ED 10:25
DX: Z53.21 Procedure and treatment not carried out due to patient leaving prior to being seen by health care provider (principal)
CPT/HCPCS: 81001